=== PATIENT | female | born 1950 | race Caucasian/White ===

== ENCOUNTER 2018-09-07 03:43 | Emergency (ER) | payer OTHER, MEDICAID ==
[~2018-09-07] VITALS: Ht 162.6 cm; Wt 49.9 kg
[2018-09-07 03:43] VITALS: BP_SYST 163
[2018-09-07] MEDS ORDERED: KETOROLAC TROMETHAMINE 30 MG VIAL IM ONE (04:15)
[2018-09-07] MEDS ORDERED: LIP10 PO (04:21)
[2018-09-07] MEDS ORDERED: VIS25 PO (04:21)
[2018-09-07] MEDS ORDERED: CYM30 PO (04:22)
[2018-09-07] MEDS ORDERED: GABA-531 PO (04:22)
[2018-09-07] MEDS ORDERED: TRAZ-218 PO (04:23)
[2018-09-07] MEDS ORDERED: ANT30 PO (04:25)
[2018-09-07] MEDS ORDERED: MOM PO (04:26)
[2018-09-07] MEDS ORDERED: ACET-2165 PO ×2 (04:27→04:28)
[2018-09-07] MEDS ORDERED: LORazepam 1 MG TABLET PO ONE (04:30)
[2018-09-07 06:36] VITALS: BP_SYST 148
== END 2018-09-07 06:36 ==
LOC: SED 03:43
DX: S20.212A Contusion of left front wall of thorax, initial encounter (principal); S16.1XXA Strain of muscle, fascia and tendon at neck level, initial encounter; S39.012A Strain of muscle, fascia and tendon of lower back, initial encounter; S46.912A Strain of unspecified muscle, fascia and tendon at shoulder and upper arm level, left arm, initial encounter; E78.00 Pure hypercholesterolemia, unspecified; F41.9 Anxiety disorder, unspecified; Z88.0 Allergy status to penicillin; Z79.899 Other long term (current) drug therapy; Y04.0XXA Assault by unarmed brawl or fight, initial encounter; Y93.89 Activity, other specified; Y92.89 Other specified places as the place of occurrence of the external cause; Y99.8 Other external cause status
CPT/HCPCS: 71045; 72040; 72100; 73030; 96372; 99285; J1885